=== PATIENT | female | born 1985 | race African-American/Black ===

== ENCOUNTER 2022-03-22 11:47 | Observation (INO) | payer MEDICAID ==
[~2022-03-22] VITALS: Ht 170.2 cm; Wt 72.6 kg
== END 2022-03-22 13:30 | disposition home or self-care (01) ==
LOC: 8 EST LDRP 11:47
PROVIDERS: ADMIT Specialist; ATTEND Specialist
DX: O26.893 Other specified pregnancy related conditions, third trimester (principal); R10.2 Pelvic and perineal pain; Z3A.38 38 weeks gestation of pregnancy
CPT/HCPCS: 99281; G0378; 59025